=== PATIENT | female | born 1965 | race Caucasian/White ===

== ENCOUNTER 2017-07-08 05:34 | Day surgery (SDC) | payer BC ==
[2017-07-08] VITALS (10 sets, daily range): BP systolic 89–107; BP diastolic 60–73; PULSE 60–75; TEMP 97.3–97.5
[~2017-07-08] VITALS: Ht 160 cm; Wt 55.0 kg
[~2017-07-08 05:34] MED LIST: NEXIUM 20MG20 MG PEG; PREVACID 30MG30 M1 PO; PROTONIX 40MG T40 MG PO; SYNTHROID0.075 MG/T PO
[2017-07-08] MEDS ORDERED: [UNRECOGNIZED DRUG - OTHER] PO (06:02)
[2017-07-08] MEDS ORDERED: MOTRIN 800800 MG/TAB PO (06:57)
[2017-07-08] MEDS ORDERED: PERCOCET 325 MG1 TA2 PO (06:57)
[2017-07-09 07:55] VITALS: BP 97/62; PULSE 77; TEMP 98.8
== END 2017-07-09 09:55 | disposition home or self-care (01) ==
LOC: SDCO 05:34 → OB 11:20 → SDCO 07-09 09:55
DX: D25.9 Leiomyoma of uterus, unspecified (principal); N83.02 Follicular cyst of left ovary; N81.6 Rectocele; E03.9 Hypothyroidism, unspecified; K21.9 Gastro-esophageal reflux disease without esophagitis; Z80.3 Family history of malignant neoplasm of breast; N81.2 Incomplete uterovaginal prolapse
CPT/HCPCS: OP; A4314; J0690; J1100; J1885; J2175; J2310; J2405; J2704; J3010; J7120

== ENCOUNTER → 2020-03-07 | Outpatient (CLI) | payer OTHER ==
[~2020-03-07] MED LIST changes: +MOTRIN 800800 MG/TAB PO; +PERCOCET 325 MG1 TA2 PO; +ZOLOFT 50MG50 MG PO; +[UNRECOGNIZED DRUG - OTHER] PO
== END ==
LOC: BHSO 11:01
DX: F90.0 Attention-deficit hyperactivity disorder, predominantly inattentive type (principal)

== ENCOUNTER → 2020-05-07 | Outpatient (CLI) | payer OTHER | LOC: BHSO 08:34 | DX: F90.0 Attention-deficit hyperactivity disorder, predominantly inattentive type (principal) | CPT/HCPCS: G0463 ==

== ENCOUNTER → 2020-06-16 | Outpatient (CLI) | payer OTHER | LOC: MC.RAD 10:53 | DX: Z12.31 Encounter for screening mammogram for malignant neoplasm of breast (principal) ==

== ENCOUNTER → 2022-12-22 | Outpatient (CLI) | payer OTHER | LOC: MC.RAD 12:51 | DX: Z12.31 Encounter for screening mammogram for malignant neoplasm of breast (principal) ==